=== PATIENT | female | born 1970 | race Caucasian/White ===

== ENCOUNTER 2016-11-27 21:21 | Emergency (ER) | payer SELFPAY ==
[2016-11-27 21:35] VITALS: BP 126/84; PULSE 60; RESP 16; TEMP 98.7; O2SAT 99
[2016-11-27] MEDS ORDERED: Iohexol 240 (50 ml) PO ONE (21:54)
[2016-11-27] MEDS ORDERED: Iohexol 240 (50 ml) ONE (22:16)
[2016-11-27 22:21] LABS: BASO % 0.6 % (0.0-2.0); EOS # 0.2 K/uL (0.0-0.7); EOS % 2.5 % (0.0-4.0); HEMATOCRIT 32.9 % (34.0-47.0); LYMPH # 3.4 K/uL (1.0-4.3); LYMPH % 40.7 % (20.0-40.0); MEAN CELL VOLUME 93.8 fl (81.0-99.0); MEAN CORPUSCULAR HEMOGLOBIN 30.5 pg (27.0-31.0); MEAN CORPUSCULAR HGB CONC 32.5 g/dL (33.0-37.0); MEAN PLATELET VOLUME 8.4 fl (7.2-11.7); MONO # 0.5 K/uL (0.0-0.8); MONO % 5.9 % (0.0-10.0); NEUT # 4.2 K/uL (1.8-7.0); NEUT % 50.3 % (50.0-75.0); RED CELL DISTRIBUTION WIDTH 12.5 % (11.5-14.5); WHITE BLOOD COUNT 8.4 K/uL (4.8-10.8)
[2016-11-27 22:31] LABS: ALB/GLOB RATIO 1.4 (1.0-2.1); ALKALINE PHOSPHATASE 59 U/L (38-126); ALT/SGPT 30 U/L (9-52); AST/SGOT 45 U/L (14-36); BILIRUBIN,TOTAL 0.4 mg/dl (0.2-1.3); BLOOD UREA NITROGEN 15 mg/dl (7-17); CARBON DIOXIDE 20 mmol/L (22-30); CHLORIDE 105 mmol/L (98-107); GFR AFRICAN-AMERICAN > 60; GLUCOSE,RANDOM 89 mg/dL (65-105); POTASSIUM 4.1 MMOL/L (3.6-5.0); SODIUM 136 mmol/l (132-148); TOTAL PROTEIN 7.6 G/DL (6.3-8.2)
[2016-11-27 23:16] LABS: RBC URINE 3 /hpf (0-3); URINE BILIRUBIN NEGATIVE (NEGATIVE); URINE BLOOD SMALL (NEGATIVE); URINE COLOR STRAW (YELLOW); URINE GLUCOSE (UA) NEG (Normal); URINE KETONE NEGATIVE (NEGATIVE); URINE LEUKOCYTE ESTERASE TRACE Leu/uL (Negative); URINE PROTEIN NEGATIVE (NEGATIVE); URINE UROBILINOGEN 0.2-1.0 mg/dL (0.2-1.0); WBC URINE 3 /hpf (0-5)
--- NOTE | 2016-11-27 23:59 | ED PDOC ---
HPI: Abdomen Time Seen by Provider: 11/27/16 21:47 Chief Complaint (Nursing): Abdominal Pain Chief Complaint (Provider): LLQ pain History Per: Patient History/Exam Limitations: no limitations Onset/Duration Of Symptoms: Days (2) Outside of [place] travel?: No Current Symptoms Are (Timing): Still Present Additional Complaint(s): 46yo female w/ PMHx including , left abdominal wall hernia, and arthritis presents to the ED with c/o LLQ abd pain that radiates to her flank and leg x 2 days. Denies n/v/d, fever. Patient was under the impression this pain was related to her hernia however pain became progressively worse so she presented to the ED for eval. Past Medical History Reviewed: Historical Data, Nursing Documentation, Vital Signs Vital Signs: Last Vital Signs Temp 98.7 F 11/27/16 21:31 Pulse 60 11/27/16 21:31 Resp 16 11/27/16 21:31 BP 126/84 11/27/16 21:31 Pulse Ox 99 11/28/16 00:07 - Medical History PMH: Arthritis Denies: Chronic Kidney Disease Other PMH: left abd wall hernia - Surgical History Surgical History: - Family History Family History: States: No Known Family Hx - Social History Current smoker - smoking cessation education provided: No Alcohol: None Drugs: Denies - Immunization History Hx Tetanus Toxoid Vaccination: No Hx Influenza Vaccination: No Hx Pneumococcal Vaccination: No - Home Medications Home Medications: Ambulatory Orders Medication Instructions Recorded traMADol [Ultram] 50 mg PO Q6H PRN #20 tab 05/20/15 Doxycycline Hyclate 100 mg PO BID #14 tablet 08/12/15 traMADol [Ultram] 50 mg PO TID #7 tab 08/12/15 - Allergies Allergies/Adverse Reactions: Allergies Allergy/AdvReac Type Severity Reaction Status Date / Time No Known Allergies Allergy Verified 11/27/16 21:31 Review of Systems ROS Statement: Except As Marked, All Systems Reviewed And Found Negative Constitutional: Negative for: Fever Gastrointestinal: Positive for: Abdominal Pain (LLQ ). Negative for: Nausea, Vomiting, Diarrhea Musculoskeletal: Positive for: Back Pain (flank ), Leg Pain Physical Exam - Reviewed Nursing Documentation Reviewed: Yes Vital Signs Reviewed: Yes - Physical Exam Appears: Positive for: Well, No Acute Distress Head Exam: Positive for: ATRAUMATIC, NORMAL INSPECTION, NORMOCEPHALIC Skin: Positive for: Normal Color, Warm, Dry Eye Exam: Positive for: Normal appearance, EOMI, PERRL ENT: Positive for: Normal ENT Inspection Neck: Positive for: Normal, Painless ROM, Supple Cardiovascular/Chest: Positive for: Regular Rate, Rhythm. Negative for: Murmur , Tachycardia Respiratory: Positive for: Normal Breath Sounds. Negative for: Wheezing, Respiratory Distress Gastrointestinal/Abdominal: Positive for: Soft, Tenderness (LLQ ). Negative for : Distended, Guarding, Rebound Back: Positive for: Normal Inspection. Negative for: L CVA Tenderness, R CVA Tenderness Extremity: Positive for: Normal ROM. Negative for: Deformity, Swelling Neurologic/Psych: Positive for: Alert, Oriented. Negative for: Motor/Sensory Deficits - Laboratory Results Result Diagrams: 11/27/16 22:18 11/27/16 22:19 - ECG O2 Sat by Pulse Oximetry: 99 Pulse Ox Interpretation: Normal (RA) Medical Decision Making Medical Decision Makin: Impression: 46yo female w LLQ pain and tenderness Plan: CT A/P Labs Toradol 10mg IV, IVF reassess 0055: CT A/P impression: No acute solid visceral abnormality; possible constipation; no CT findings of appendicitis. 0134: Labs reviewed, show no clinically significant findings. Patient reports feeling improved. Counseled on benign findings on CT. Will f/u w her PCP in 2 days. Advised to take ibuprofen for pain as needed. Dx: abdominal pain, umbilical hernia Improved Scribe Attestation: Documented by Stephanie Piña acting as a scribe for Devin Matthews MD. Provider Scribe Attestation: All medical record entries made by the Scribe were at my direction and personally dictated by me. I have reviewed the chart and agree that the record accurately reflects my personal performance of the history, physical exam, medical decision making, and the department course for this patient. I have also personally directed, reviewed, and agree with the discharge instructions and disposition. Disposition - Clinical Impression Clinical Impression: Abdominal pain, Umbilical hernia - Patient ED Disposition Is Patient to be Admitted: No Counseled Patient/Family Regarding: Studies Performed, Diagnosis, Need For Followup - Disposition Disposition: Routine/Home Disposition Time: 01:34 Condition: IMPROVED Instructions: Umbilical Hernia (ED), Abdominal Pain (ED) Print Language: TURKMEN
[2016-11-28] MEDS ORDERED: Sodium Chloride 0.9% 50 ML IV ONE (00:03)
[2016-11-28] MEDS ORDERED: Iohexol 300 100 ML IJ ONE (00:03)
--- NOTE | 2016-11-28 00:55 | CT ---
EXAM: CT Abdomen and Pelvis With Intravenous Contrast CLINICAL HISTORY: 46 years old, female; Pain; Abdominal pain; Additional info: Abd pain; Llq pain TECHNIQUE: Axial computed tomography images of the abdomen and pelvis with intravenous contrast. This CT exam was performed using one or more of the following dose reduction techniques: automated exposure control, adjustment of the mA and/or kV according to patient size, and/or use of iterative reconstruction technique. Coronal and sagittal reformatted images were created and reviewed. CONTRAST: 95 mL of [id number] administered intravenously. EXAM DATE/TIME: 11/27/2016 9:52 PM COMPARISON: US - PELVIS ULTRASOUND 07/02/2016 4:38:01 PM FINDINGS: Lower thorax: Heart size is normal. There is a small hiatal hernia. There is dependent atelectasis at the lung bases. ABDOMEN: Liver: There is fatty infiltration of the liver. Gallbladder and bile ducts: unremarkable Pancreas: unremarkable Spleen: unremarkable Adrenals: unremarkable Kidneys and ureters: unremarkable Stomach and bowel: Stomach is partially distended. Rotation is normal. There is no obstruction. Terminal ileum is unremarkable. Appendix is unremarkable. There is moderately large amount of stool in the right colon. Appendix: See above. PELVIS: Bladder: unremarkable Reproductive: Uterus and adnexal structures are unremarkable. ABDOMEN and PELVIS: Intraperitoneal space: There is no free air or free fluid. Bones/joints: unremarkable Soft tissues: There are multiple granulomas in the buttocks. There is a small umbilical hernia. There is a small fat containing right inguinal hernia. Vasculature: Vascular structures are unremarkable. Lymph nodes: No pathologic adenopathy IMPRESSION: No acute solid visceral abnormality; possible constipation; no CT findings of appendicitis Additional findings as described above.
== END 2016-11-28 01:38 | disposition home or self-care (01) ==
LOC: H.ER 21:21
DX: K42.9 Umbilical hernia without obstruction or gangrene (principal); R10.32 Left lower quadrant pain
CPT/HCPCS: 74177; 80053; 81003; 81025; 85025; 99283; J1885; Q9966; Q9967

== ENCOUNTER 2017-02-18 12:36 | Emergency (ER) | payer OTHER, SELFPAY ==
[2017-02-18 12:56] VITALS: BP 112/67; PULSE 69; RESP 16; TEMP 98; O2SAT 99
--- NOTE | 2017-02-18 13:27 | ED PDOC ---
HPI: CCC, URI, Sore Throat Time Seen by Provider: 02/18/17 13:00 Chief Complaint (Nursing): ENT Problem Chief Complaint (Provider): ENT Problem History Per: Patient History/Exam Limitations: no limitations Onset/Duration Of Symptoms: Days (2x weeks) Current Symptoms Are (Timing): Still Present Location Of Pain: Ear(s) (bilateral) Associated Symptoms: denies: Fever, Other (dizziness, weakness, gait instability ) Ear Symptoms: Left: Ear Pain ("ringing and buzzing"), Right: Ear Pain Severity: Moderate Additional Complaint(s): 46 year old female with no pertinent medical history presents to the ED with complaints of right ear pain (buzzing and ringing) that started 2x weeks ago. She reports that this pain now involves her left ear, which is what prompted her visit to the ED today. She reports that she made an appointment to see her doctor in 2x days, but came to the ED when she started to feel pain in her left ear. She denies having fevers, chills, dizziness, weakness, and gait instability. PMD: Hiram Braden MD Past Medical History Reviewed: Historical Data, Nursing Documentation, Vital Signs Vital Signs: Last Vital Signs Temp 98.0 F 02/18/17 12:52 Pulse 69 02/18/17 12:52 Resp 16 02/18/17 12:52 BP 112/67 02/18/17 12:52 Pulse Ox 99 02/18/17 13:31 - Medical History PMH: Arthritis Denies: Chronic Kidney Disease - Surgical History Surgical History: (3x) - Family History Family History: States: No Known Family Hx - Social History Current smoker - smoking cessation education provided: No Alcohol: None Drugs: Denies - Immunization History Hx Tetanus Toxoid Vaccination: No Hx Influenza Vaccination: No Hx Pneumococcal Vaccination: No - Home Medications Home Medications: Ambulatory Orders Medication Instructions Recorded traMADol [Ultram] 50 mg PO Q6H PRN #20 tab 05/20/15 Doxycycline Hyclate 100 mg PO BID #14 tablet 08/12/15 traMADol [Ultram] 50 mg PO TID #7 tab 08/12/15 - Allergies Allergies/Adverse Reactions: Allergies Allergy/AdvReac Type Severity Reaction Status Date / Time No Known Allergies Allergy Verified 02/18/17 12:52 Review of Systems ROS Statement: Except As Marked, All Systems Reviewed And Found Negative Constitutional: Negative for: Fever, Chills ENT: Positive for: Ear Pain (bilateral ear pain ("buzzing, ringing")) Neurological: Negative for: Weakness, Dizziness, Other (gait instability) Physical Exam - Reviewed Nursing Documentation Reviewed: Yes Vital Signs Reviewed: Yes - Physical Exam Appears: Positive for: Well, Non-toxic, No Acute Distress Head Exam: Positive for: ATRAUMATIC, NORMOCEPHALIC Skin: Positive for: Normal Color, Warm, Dry Eye Exam: Positive for: Normal appearance ENT: Positive for: Other (bilateral cerumen impaction) Neck: Positive for: Normal Cardiovascular/Chest: Positive for: Regular Rate, Rhythm Respiratory: Positive for: Normal Breath Sounds. Negative for: Respiratory Distress Neurologic/Psych: Positive for: Alert, Oriented (3x) - ECG O2 Sat by Pulse Oximetry: 99 (RA) Pulse Ox Interpretation: Normal - Progress ED Course And Treament: verbal consent prior to procedure bilateral ear irrigated with hydrogen peroxide/sterile water with successful removal of cerumen bilaterally and improvement of symptoms. Medical Decision Making Medical Decision Makin:00 Initial impression: 46 year old female with bilateral ear pain. Plan: Scribe Attestation: Documented by Kelly Ken, acting as a scribe for Reyna Cowart PA-C. Provider Scribe Attestation: All medical record entries made by the Scribe were at my direction and personally dictated by me. I have reviewed the chart and agree that the record accurately reflects my personal performance of the history, physical exam, medical decision making, and the department course for this patient. I have also personally directed, reviewed, and agree with the discharge instructions and disposition. Disposition - Clinical Impression Clinical Impression: Impacted cerumen of both ears - Patient ED Disposition Is Patient to be Admitted: No - Disposition Referrals: Martin Adams MD [Staff Provider] - Disposition: Routine/Home Disposition Time: 14:33 Condition: FAIR Additional Instructions: SI NO MEJORA PROBLEMA--SIGA CON LA SPECIALISTA DE OIDO. Instructions: Cerumen Impaction (ED) Forms: [employer] (Sinhala) Print Language: FAROESE
== END 2017-02-18 14:44 | disposition home or self-care (01) ==
LOC: H.ER 12:36
DX: H61.23 Impacted cerumen, bilateral (principal)

== ENCOUNTER 2017-02-20 14:56 | Emergency (ER) | payer SELFPAY ==
[2017-02-20 15:06] VITALS: BP 108/71; PULSE 80; RESP 16; TEMP 98.1; O2SAT 100
--- NOTE | 2017-02-20 16:02 | ED PDOC ---
HPI: General Adult Time Seen by Provider: 02/20/17 15:11 Chief Complaint (Nursing): ENT Problem Chief Complaint (Provider): Continued ear pain, L>R History Per: Patient History/Exam Limitations: no limitations Onset/Duration Of Symptoms: Days Have you had recent travel within the past 21 days to any of the following countries: [place], [place], [place] or [place]?: No Current Symptoms Are (Timing): Still Present Severity: Moderate Pain Scale Rating Of: 6 Additional Complaint(s): PT was seen in ER 2 days ago and had cerumen impaction. Pt reports improvement in hearing but is now having pain. PT states she has appointment on thursday to see the specialist. Denies fever/chills. Past Medical History Reviewed: Historical Data, Nursing Documentation, Vital Signs Vital Signs: Last Vital Signs Temp 98.1 F 02/20/17 15:03 Pulse 80 02/20/17 15:03 Resp 16 02/20/17 15:03 BP 108/71 02/20/17 15:03 Pulse Ox 100 02/20/17 15:03 - Medical History PMH: Arthritis Denies: Chronic Kidney Disease - Surgical History Surgical History: (3x) - Family History Family History: States: Unknown Family Hx - Immunization History Hx Tetanus Toxoid Vaccination: No Hx Influenza Vaccination: No Hx Pneumococcal Vaccination: No - Home Medications Home Medications: Ambulatory Orders Medication Instructions Recorded traMADol [Ultram] 50 mg PO Q6H PRN #20 tab 05/20/15 Doxycycline Hyclate 100 mg PO BID #14 tablet 08/12/15 traMADol [Ultram] 50 mg PO TID #7 tab 08/12/15 Amoxicillin 875 mg PO BID #20 tab 02/20/17 Guaifen/Phenyleph/Acetaminophn 1 tab PO BID #14 tab 02/20/17 [Mucinex Fast-Max Cold & Sinus 325 mg-200 mg-5] - Allergies Allergies/Adverse Reactions: Allergies Allergy/AdvReac Type Severity Reaction Status Date / Time No Known Allergies Allergy Verified 02/20/17 15:03 Review of Systems ROS Statement: Except As Marked, All Systems Reviewed And Found Negative ENT: Positive for: Ear Pain Physical Exam - Reviewed Nursing Documentation Reviewed: Yes Vital Signs Reviewed: Yes - Physical Exam Appears: Positive for: Well, Non-toxic, No Acute Distress Head Exam: Positive for: ATRAUMATIC, NORMAL INSPECTION, NORMOCEPHALIC Skin: Positive for: Normal Color, Warm, DRY Eye Exam: Positive for: Normal appearance ENT: Positive for: Normal ENT Inspection, Other (TM wihtout erythema, edema or rupture ) Neck: Positive for: Normal, Painless ROM Cardiovascular/Chest: Positive for: Regular Rate, Rhythm Respiratory: Positive for: CNT, Normal Breath Sounds Back: Positive for: Normal Inspection Extremity: Positive for: Normal ROM Neurologic/Psych: Positive for: Alert, Oriented - ECG O2 Sat by Pulse Oximetry: 100 Disposition - Clinical Impression Clinical Impression: Otalgia - Patient ED Disposition Is Patient to be Admitted: No Counseled Patient/Family Regarding: Diagnosis, Need For Followup, Rx Given - Disposition Referrals: Martin Adams MD [Staff Provider] - Disposition: Routine/Home Disposition Time: 16:02 Condition: GOOD Prescriptions: Amoxicillin 875 mg PO BID #20 tab Guaifen/Phenyleph/Acetaminophn [Mucinex Fast-Max Cold & Sinus 325 mg-200 mg-5] 1 tab PO BID #14 tab Instructions: Earache (ED) Print Language: GREENLANDIC
== END 2017-02-20 16:05 | disposition home or self-care (01) ==
LOC: H.ER 14:56
DX: H92.03 Otalgia, bilateral (principal)

== ENCOUNTER 2018-02-24 11:35 | Emergency (ER) | payer OTHER, SELFPAY ==
[2018-02-24 11:42] VITALS: BP 124/80; PULSE 84; RESP 17; TEMP 99; O2SAT 98
--- NOTE | 2018-02-24 12:24 | ED PDOC ---
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 Patient states that one year ago she fell on her right ankle but never sought medical attention at time of injury. As of eight days ago her right ankle prompting ED visit today. She notes taking Ibuprofen today for the pain with minimal relief. Denies recent trauma or injury. PMD: Ricardo Carey Past Medical History Reviewed: Historical Data, Nursing Documentation, Vital Signs Vital Signs: Last Vital Signs Temp 99 F 02/24/18 11:42 Pulse 84 02/24/18 11:42 Resp 17 02/24/18 11:42 BP 124/80 02/24/18 11:42 Pulse Ox 98 02/24/18 11:50 - Medical History PMH: Arthritis - Surgical History Surgical History: (3x) - Family History Family History: States: No Known Family Hx - Living Arrangements Living Arrangements: With Family - Social History Current smoker - smoking cessation education provided: No Alcohol: None Drugs: Denies - Home Medications Home Medications: Ambulatory Orders Medication Instructions Recorded traMADol [Ultram] 50 mg PO Q6H PRN #20 tab 05/20/15 Doxycycline Hyclate 100 mg PO BID #14 tablet 08/12/15 traMADol [Ultram] 50 mg PO TID #7 tab 08/12/15 Amoxicillin 875 mg PO BID #20 tab 02/20/17 Guaifen/Phenyleph/Acetaminophn 1 tab PO BID #14 tab 02/20/17 [Mucinex Fast-Max Cold & Sinus 325 mg-200 mg-5] Ibuprofen [Motrin] 600 mg PO Q6 PRN #15 tab 02/24/18 - Allergies Allergies/Adverse Reactions: Allergies Allergy/AdvReac Type Severity Reaction Status Date / Time No Known Allergies Allergy Verified 02/24/18 11:50 Wells Criteria for PE - Wells Criteria for Pulmonary Embolism Clinical Signs and Symptoms of DVT: No P.E is #1 Diagnosis, or Equally Likely: No Heart Rate >100: No Immobilization at least 3 days;Surgery previous 4 weeks: No Previous, objectively diagnosed PE or DVT: No Hemoptysis: No Malignancy w/treatment within 6 months, or palliative: No Total Score: 0 Review of Systems ROS Statement: Except As Marked, All Systems Reviewed And Found Negative Musculoskeletal: Positive for: Other (right ankle pain) Physical Exam - Reviewed Nursing Documentation Reviewed: Yes Vital Signs Reviewed: Yes - Physical Exam Appears: Positive for: Well, Non-toxic, No Acute Distress Skin: Positive for: Normal Color. Negative for: Rash Eye Exam: Positive for: Normal appearance Pulses-Dorsalis Pedis (R): 2+ Extremity: Positive for: Other (mild swelling and tenderness to right lateral malleolus, nontender right foot) Neurologic/Psych: Positive for: Alert, Oriented (x3) - Laboratory Results Urine POC: Negative - ECG O2 Sat by Pulse Oximetry: 98 (RA) Pulse Ox Interpretation: Normal - Other Rad right ankle x-ray X-Ray: Interpreted by Me, Viewed By Me X-Ray Interpretation: no fx, no dis Medical Decision Making Medical Decision Making: Time: 1225 Initial Impression: 47 year old female with right ankle pain Initial Plan: --Tylenol 975mg PO --Right ankle XR Patient is aware of x-ray results. All questions answered. Crutches were provided. See procedure note. Patient given prescription for Motrin referred to podiatry clinic for follow Scribe Attestation: Documented by Marcia Oliveira, acting as a scribe for Blanac Ontiveros PA-C Provider Scribe Attestation: All medical record entries made by the Scribe were at my direction and personally dictated by me. I have reviewed the chart and agree that the record accurately reflects my personal performance of the history, physical exam, medical decision making, and the department course for this patient. I have also personally directed, reviewed, and agree with the discharge instructions and disposition. Procedures - Splinting Location: right ankle/foot region Pre-Made Type: jhony wrap, ortho shoe Pre-Proc Neuro Vasc Exam: normal Post-Proc Neuro Vasc Exam: normal Disposition - Clinical Impression Clinical Impression: Foot pain, Ankle pain - Patient ED Disposition Is Patient to be Admitted: No Counseled Patient/Family Regarding: Studies Performed, Diagnosis, Need For Followup, Rx Given - Disposition Referrals: Podiatry Clinic [Outside] Disposition: Routine/Home Disposition Time: 13:14 Condition: STABLE Additional Instructions: Ice, rest and elevate affected area. Take rx meds as directed as needed for pain. Follow up with podiatry clinic. Prescriptions: Ibuprofen [Motrin] 600 mg PO Q6 PRN #15 tab PRN Reason: Pain, Moderate (4-7) Instructions: Muscle and Bone Pain (DC), Foot Sprain (DC) Forms: [employer] (Indonesian) Print Language: GUAMANIAN
--- NOTE | 2018-02-24 13:10 | RAD ---
Date of service: 02/24/2018 PROCEDURE: Right Ankle Radiographs. HISTORY: pain for 1 year COMPARISON: None FINDINGS: BONES: Normal. No fracture. JOINTS: Normal. No osteoarthritis. Ankle mortise maintained. Talar dome intact SOFT TISSUES: Normal. OTHER FINDINGS: None. IMPRESSION: Normal right ankle radiographs.
== END 2018-02-24 14:24 | disposition home or self-care (01) ==
LOC: H.ER 11:35
DX: M25.571 Pain in right ankle and joints of right foot (principal)